=== PATIENT | male | born 1960 | race Caucasian/White ===

== ENCOUNTER 2018-03-19 12:15 | Emergency (ER) | payer OTHER, MEDICAID ==
[~2018-03-19] VITALS: Ht 167.6 cm; Wt 55.0 kg
[2018-03-19 12:16] VITALS: BP 116/82
== END 2018-03-19 18:37 | disposition left against medical advice (07) ==
LOC: ER 12:28
DX: M79.675 Pain in left toe(s) (principal); F31.9 Bipolar disorder, unspecified; F17.200 Nicotine dependence, unspecified, uncomplicated; Z53.21 Procedure and treatment not carried out due to patient leaving prior to being seen by health care provider

== ENCOUNTER 2019-08-08 22:39 | Emergency (ER) | payer OTHER, MEDICAID ==
[~2019-08-08] VITALS: Ht 175.3 cm; Wt 82.0 kg
[2019-08-08 22:47] VITALS: BP 123/93
== END 2019-08-09 00:38 | disposition left against medical advice (07) ==
LOC: ER 22:39
DX: Z53.21 Procedure and treatment not carried out due to patient leaving prior to being seen by health care provider (principal)

== ENCOUNTER → 2022-06-03 | Emergency (ER) | payer MEDICAID, OTHER ==
[~2022-06-03] VITALS: Ht 162.6 cm; Wt 54.0 kg
[~2022-06-03] MED LIST: KETOROLAC 15MG/ML VIAL IV ONE
[2022-06-03 12:00] LABS: CHLORIDE 107 mEq/L (98-107)
[2022-06-03 12:01] LABS: BASOPHILS % 0.6 % (0.0-2.0); HEMATOCRIT. 43.6 % (42.0-52.0); HEMOGLOBIN. 14.6 g/dL (14.0-18.0); LYMPHOCYTES % 24.1 % (20.0-50.0); MEAN CORPUSCULAR HEMOGLOBIN 34.8 pg (28.0-32.0); MEAN CORPUSCULAR VOLUME 103.7 fL (80.0-94.0); MONOCYTES % 12.1 % (2.0-8.0); NEUTROPHILS % 59.2 % (40.0-76.0); PLATELET 316 x1000/uL (130-400); RED CELL DISTRIBUTION WIDTH 14.4 % (11.6-14.6)
[2022-06-03 17:41] VITALS: BP 134/77
== END | disposition home or self-care (01) ==
LOC: ER 10:14 → EDBEDREQ 13:54 → CANBEDREQ 16:47
DX: K64.9 Unspecified hemorrhoids (principal); R94.31 Abnormal electrocardiogram [ECG] [EKG]
CPT/HCPCS: 36415; 71045; 80053; 85025; 93005; 96374; 99285; J1885